=== PATIENT | female | born 1980 | race Caucasian/White ===

== ENCOUNTER 2020-04-22 01:11 | Day surgery (SDCO) | payer OTHER ==
[~2020-04-22] VITALS: Ht 157.5 cm; Wt 99.9 kg
[~2020-04-22 01:11] MED LIST: DICYCLOMINE HCL20 MG PO; FLEXERIL10 MG PO; GABAPENTIN300 MG PO; HYDROCODON-ACE1 EAC2 PO; IMITREX50 MG PO; NAPROXEN500 MG PO; NORCO 5-325 TA1 EACH PO; ZOFRAN8 MG PO
[2020-04-22 02:08] LABS: BASOPHIL 0.4 % (0-2); EOSINOPHIL 0.9 % (0-5); HCT 39.4 % (37.0-47.0); HGB 13.4 g/dl (12.5-16.0); LYMPHOCYTE 24.3 % (15-48); MCH 29.6 pg (25.0-31.0); MONOCYTE 7.7 % (0-12); MPV 9.3 fL (6.0-9.5); NEUTROPHIL 66.3 % (41-80); NRBC 0; PLT 268 K/uL (150-400); RBC 4.53 M/uL (4.20-5.40); RDW 12.6 % (11.5-14.0); WBC 9.8 K/uL (4.0-10.5)
[2020-04-22 02:22] LABS: ALBUMIN 3.9 g/dL (3.4-5.0); BILIRUBIN - TOTAL 0.3 mg/dL (0.2-1.0); BUN/CREAT RATIO (CALC) 11.4 RATIO; CREATININE 1.05 mg/dL (0.51-0.95); GLOBULIN (CALCULATION) 3.5 g/dL; POTASSIUM 3.6 mmol/L (3.5-5.1); TOTAL PROTEIN 7.4 g/dL (6.4-8.2)
[2020-04-22 03:29] LABS: BILIRUBIN NEGATIVE (NEGATIVE); BLOOD NEGATIVE Ery/uL (NEGATIVE); CLARITY CLEAR (CLEAR); COLOR YELLOW (YELLOW); GLUCOSE (U) NORMAL (NORMAL); LEUKOCYTES NEGATIVE Leu/uL (NEGATIVE); NITRITE NEGATIVE (NEGATIVE); PROTEIN NEGATIVE (NEGATIVE); SPECIFIC GRAVITY >=1.030 (1.001-1.030); UROBILINOGEN 0.2 mg/dL (0.2-1.0); pH 6.5 (5.0-9.0)
[2020-04-22 05:50] LABS: LACTIC ACID 0.9 mmol/L (0.4-1.9)
--- NOTE | 2020-04-22 05:52 | NUR ---
PATIENT ARRIVED TO FLOOR AT 0545. ALERT AND OREINTED. ABLE TO MAKE NEEDS KNOWN. SINUS RHYTHUM ON MONITIOR. CALL LIGHT IN REACH. BED IN LOW POSITION.
[2020-04-23 07:07] LABS: BASOPHIL 0.4 % (0-2); EOSINOPHIL 1.8 % (0-5); HCT 35.2 % (37.0-47.0); HGB 11.4 g/dl (12.5-16.0); MCHC 32.4 g/dL (32.0-36.0); MCV 89.6 fL (78.0-100.0); MONOCYTE 8.2 % (0-12); MPV 9.2 fL (6.0-9.5); NEUTROPHIL 61.2 % (41-80); NRBC 0; PLT 203 K/uL (150-400); RBC 3.93 M/uL (4.20-5.40); RDW 12.9 % (11.5-14.0); WBC 5.6 K/uL (4.0-10.5)
[2020-04-23 07:34] LABS: BUN/CREAT RATIO (CALC) 9.6 RATIO; CREATININE 0.83 mg/dL (0.51-0.95); MAGNESIUM 1.9 mg/dL (1.8-2.4); POTASSIUM 3.5 mmol/L (3.5-5.1)
[2020-04-24] MEDS ORDERED: NORCO 5-325 TA1 EACH PO (14:45)
[2020-04-24] MEDS ORDERED: ONDANSETRON HCL4 MG PO (14:45)
== END 2020-04-24 15:32 | disposition home or self-care (01) ==
LOC: FER 01:11 → FTCU 05:10 → FMS 05:10 → FTCU 08:49 → FMS 12:54
PROVIDERS: Emergency Medicine; Internal Medicine; ADMIT Internal Medicine
DX: R10.33 Periumbilical pain (principal); R11.2 Nausea with vomiting, unspecified; Z90.49 Acquired absence of other specified parts of digestive tract; Z90.711 Acquired absence of uterus with remaining cervical stump; Z98.890 Other specified postprocedural states; Z87.19 Personal history of other diseases of the digestive system; Z20.822 Contact with and (suspected) exposure to COVID-19; Z87.09 Personal history of other diseases of the respiratory system
CPT/HCPCS: 36415; 76705; 80048; 80053; 81003; 83605; 83690; 83735; 85025; G0378; J0780; J2270; J2405; J7030; Q9967; U0002

== ENCOUNTER 2021-01-19 15:38 | Emergency (ER) | payer OTHER ==
[~2021-01-19 15:38] MED LIST changes: +ONDANSETRON HCL4 MG PO
== END 2021-01-19 19:05 | disposition home or self-care (01) ==
LOC: FER 15:38
DX: M79.662 Pain in left lower leg (principal)
CPT/HCPCS: 93971

== ENCOUNTER 2021-06-01 19:53 | Emergency (ER) | payer OTHER | END 2021-06-01 20:20 | disposition home or self-care (01) | LOC: FER 19:53 | DX: S61.211A Laceration without foreign body of left index finger without damage to nail, initial encounter (principal); W26.0XXA Contact with knife, initial encounter; Y92.009 Unspecified place in unspecified non-institutional (private) residence as the place of occurrence of the external cause ==

== ENCOUNTER 2021-06-22 19:32 | Emergency (ER) | payer OTHER ==
[2021-06-22] MEDS ORDERED: AMOX TR-K CLV1 EAC4 PO (21:05)
== END 2021-06-22 22:17 | disposition home or self-care (01) ==
LOC: FER 19:32
DX: S60.572A Other superficial bite of hand of left hand, initial encounter (principal); W54.0XXA Bitten by dog, initial encounter; Y92.009 Unspecified place in unspecified non-institutional (private) residence as the place of occurrence of the external cause
CPT/HCPCS: 73130

== ENCOUNTER 2021-12-28 18:06 | Emergency (ER) | payer OTHER ==
[~2021-12-28 18:06] MED LIST changes: +AMOX TR-K CLV1 EAC4 PO
[2021-12-28 19:16] LABS: BASOPHIL 0.5 % (0-2); EOSINOPHIL 1.6 % (0-5); HCT 35.7 % (37.0-47.0); HGB 11.7 g/dl (12.5-16.0); LYMPHOCYTE 26.5 % (15-48); MCH 28.9 pg (25.0-31.0); MCHC 32.8 g/dL (32.0-36.0); MCV 88.1 fL (78.0-100.0); MONOCYTE 8.5 % (0-12); MPV 9.5 fL (6.0-9.5); NEUTROPHIL 62.5 % (41-80); NRBC 0; PLT 265 K/uL (150-400); RBC 4.05 M/uL (4.20-5.40); RDW 12.4 % (11.5-14.0); WBC 7.6 K/uL (4.0-10.5)
[2021-12-28 19:33] LABS: ALBUMIN 3.6 g/dL (3.4-5.0); BILIRUBIN - TOTAL 0.3 mg/dL (0.2-1.0); BUN/CREAT RATIO (CALC) 10.1 RATIO; CREATININE 0.79 mg/dL (0.51-0.95); GLOBULIN (CALCULATION) 2.7 g/dL; POTASSIUM 3.3 mmol/L (3.5-5.1); TOTAL PROTEIN 6.3 g/dL (6.4-8.2)
[2021-12-28 20:06] LABS: BILIRUBIN NEGATIVE (NEGATIVE); BLOOD NEGATIVE Ery/uL (NEGATIVE); CLARITY CLEAR (CLEAR); COLOR YELLOW (YELLOW); GLUCOSE (U) NORMAL (NORMAL); LEUKOCYTES NEGATIVE Leu/uL (NEGATIVE); NITRITE NEGATIVE (NEGATIVE); PROTEIN NEGATIVE (NEGATIVE); UROBILINOGEN 0.2 mg/dL (0.2-1.0); pH 5.5 (5.0-9.0)
[2021-12-28 20:43] LABS: CORONAVIRUS 2019 SARS-COV-2 NEGATIVE (NEGATIVE); INFLUENZA A NAA NEGATIVE (NEGATIVE)
[2021-12-29] MEDS ORDERED: NEURONTIN300 MG PO (00:30)
== END 2021-12-29 01:12 | disposition home or self-care (01) ==
LOC: FER 18:06
PROVIDERS: Emergency Medicine
DX: R55 Syncope and collapse (principal); Z20.822 Contact with and (suspected) exposure to COVID-19
CPT/HCPCS: 36415; 80053; 81003; 84484; 85025; 93005; J1885; J2405; U0002